=== PATIENT | male | born 1965 | race Two or more races ===

== ENCOUNTER 2022-02-21 21:58 | Emergency (ER) | payer SELFPAY ==
[~2022-02-21] VITALS: Ht 182.9 cm; Wt 82.0 kg
[2022-02-21] MEDS ORDERED: LORAZEPAM 2MG/ML CPJ IV ONE (22:45)
[2022-02-21 22:58] LABS: BASOPHILS % 0.5 % (0.0-2.0); EOSINOPHILS % 1.6 % (0.0-5.0); HEMATOCRIT. 44.3 % (42.0-52.0); HEMOGLOBIN. 14.7 g/dL (14.0-18.0); LYMPHOCYTES % 25.7 % (20.0-50.0); MEAN CORPUSCULAR HEMOGLOBIN 31.3 pg (28.0-32.0); MEAN CORPUSCULAR VOLUME 94.4 fL (80.0-94.0); MEAN PLATELET VOLUME 7.5 fl (7.4-10.4); MONOCYTES % 3.9 % (2.0-8.0); NEUTROPHILS % 68.3 % (40.0-76.0); PLATELET 453 x1000/uL (130-400); RED BLOOD CELL COUNT 4.69 mill/uL (4.7-6.1); RED CELL DISTRIBUTION WIDTH 15.3 % (11.6-14.6)
[2022-02-21 23:04] LABS: CHLORIDE 104 mEq/L (98-107)
[2022-02-21] MEDS ORDERED: NALOXONE HCL 0.4 MG/ML 1ML VIAL IV ONE (23:15)
[2022-02-21 23:17] LABS: CREATINE KINASE 89 IU/L (39-308); ETHANOL BLOOD < 10 mg/dL
[2022-02-22 00:13] LABS: CLARITY URINE CLEAR (CLEAR); COLOR URINE YELLOW (YELLOW); KETONES URINE NEGATIVE (NEGATIVE); LEUKOCYTE ESTERASE URINE NEGATIVE (NEGATIVE); NITRITE URINE NEGATIVE (NEGATIVE); OCCULT BLOOD URINE NEGATIVE (NEGATIVE); PROTEIN URINE TRACE (NEGATIVE); UROBILINOGEN URINE 0.2 E.U./dL (0.2-1.0)
[2022-02-22] MEDS ORDERED: IPRATROPIUM BROMIDE (0.02%) 0.5MG/2.5ML NEB HHN STA (01:04)
[2022-02-22] MEDS ORDERED: AZITHROMYCIN 500MG/250ML 250 ML IV ONE (01:15)
[2022-02-22] MEDS ORDERED: CEFTRIAXONE 1 G PREMIX 50 ML IV ONE (01:15)
[2022-02-22] MEDS: ALBUTEROL (0.083%) 2.5MG/3ML NEB HHN SCH ×4 (01:40→02:23)
[2022-02-22] MEDS ORDERED: CEFTRIAXONE 1,000 MG in DEXTROSE 5% WATER 50 ML IV SCH (02:00)
[2022-02-22] MEDS ORDERED: AZITHROMYCIN 500 MG in DEXT 5% WATER 250 ML IV SCH (02:00)
[2022-02-22 02:25] LABS: *AMPHETAMINES SCREEN URINE NEGATIVE (NEGATIVE); *BARBITURATES SCREEN URINE NEGATIVE (NEGATIVE); *BENZODIAZEPINES SCREEN URINE NEGATIVE (NEGATIVE); *COCAINE SCREEN URINE NEGATIVE (NEGATIVE); CANNABINOID URINE SCREEN NEGATIVE (NEGATIVE); METHADONE URINE SCREEN NEGATIVE (NEGATIVE); OPIATES URINE SCREEN NEGATIVE (NEGATIVE); PHENCYCLIDINE URINE SCREEN NEGATIVE (NEGATIVE)
[2022-02-22 04:00] VITALS: BP 93/43
== END 2022-02-22 05:38 | disposition left against medical advice (07) ==
LOC: ER 21:58 → CANBEDREQ 02-22 07:12
DX: T40.0X1A Poisoning by opium, accidental (unintentional), initial encounter (principal); G40.909 Epilepsy, unspecified, not intractable, without status epilepticus; J44.1 Chronic obstructive pulmonary disease with (acute) exacerbation; E87.2 Acidosis; G92.8 Other toxic encephalopathy; Y92.89 Other specified places as the place of occurrence of the external cause; R06.89 Other abnormalities of breathing; F11.129 Opioid abuse with intoxication, unspecified
CPT/HCPCS: 36415; 70450; 71045; 80053; 80305; 80307; 80320; 80329; 81003; 82140; 82550; 82962; 83605; 83880; 84443; 85025; 87040; 87086; 93005; 94640; 96365; 96367; 96375; 99291; J0456; J0696; J2060; J2310; J7060; Z7610; G0480